=== PATIENT | female | born 1985 | race Caucasian/White ===

== ENCOUNTER 2023-07-14 19:17 | Emergency (ER) | payer BC ==
[2023-07-14 20:56] LABS: BASO% 0.2 % (0-3); EOS% 0.4 % (0-8); HEMATOCRIT 41.3 % (37.0-47.0); HEMOGLOBIN 14.1 g/dl (12.0-16.0); IMMATURE GRANULOCYTES 0.1 % (0.0-5.0); LYMPH% 19.3 % (15-41); MEAN CELL VOLUME 82.6 fL CALC (80.0-100.0); MEAN CORPUSCULAR HGB 28.2 pG CALC (26.0-32.0); MEAN CORPUSCULAR HGB CONC 34.1 g/dL CAL (32.0-36.0); MONO% 4.9 % (2-13); NEUT# 6.77 thou/uL (2.00-7.15); NEUT% 75.1 % (42-76); RED CELL DISTRI WIDTH 11.2 % (11.5-15.5)
[2023-07-14 22:36] VITALS: BP 120/60
== END 2023-07-14 22:36 | disposition home or self-care (01) | DRG 179 ==
LOC: ED 19:17
PROVIDERS: Family Medicine
DX: U07.1 COVID-19 (principal); R07.9 Chest pain, unspecified; R05.9 Cough, unspecified; R06.02 Shortness of breath; R42 Dizziness and giddiness; R20.2 Paresthesia of skin